=== PATIENT | female | born 1960 | race American Indian/Alaskan Native ===

== ENCOUNTER 2016-07-29 | Day surgery (SDC) | payer OTHER ==
[2016-07-29 12:52] VITALS: BMI 34.3
[2016-07-29] MEDS ORDERED: Propofol 10 mg/ml Inj (20 ML) ONE (13:01)
[2016-07-29] MEDS ORDERED: Lactated Ringer's 500 ML IV ONE (13:05)
[2016-07-29 13:34] VITALS: TEMP 97
[2016-07-29 13:42] VITALS: BP 111/51; PULSE 64; RESP 15; O2SAT 10
== END 2016-07-29 13:42 | disposition home or self-care (01) ==
LOC: H.ENDO
PROVIDERS: ATTEND Internal Medicine Gastroenterology
DX: Z12.11 Encounter for screening for malignant neoplasm of colon (principal); I25.10 Atherosclerotic heart disease of native coronary artery without angina pectoris; E78.5 Hyperlipidemia, unspecified; D25.9 Leiomyoma of uterus, unspecified; D64.9 Anemia, unspecified; K64.8 Other hemorrhoids; K63.89 Other specified diseases of intestine; K92.2 Gastrointestinal hemorrhage, unspecified

== ENCOUNTER 2016-08-05 07:05 | Day surgery (SDC) | payer OTHER ==
[2016-08-05] MEDS ORDERED: Lactated Ringer's 500 ML IV ONE (07:33)
[2016-08-05 07:44] VITALS: O2SAT 100
[2016-08-05] MEDS ORDERED: Propofol 10 mg/ml Inj (20 ML) ONE (08:23)
[2016-08-05 09:15] VITALS: TEMP 99.3
[2016-08-05 09:30] VITALS: BP 132/70; PULSE 94; RESP 24
== END 2016-08-05 09:40 | disposition home or self-care (01) ==
LOC: H.ENDO 07:05
PROVIDERS: ATTEND Internal Medicine Gastroenterology
DX: K57.30 Diverticulosis of large intestine without perforation or abscess without bleeding (principal); I25.10 Atherosclerotic heart disease of native coronary artery without angina pectoris; E78.5 Hyperlipidemia, unspecified; D64.9 Anemia, unspecified; K64.8 Other hemorrhoids; K92.2 Gastrointestinal hemorrhage, unspecified; Z85.038 Personal history of other malignant neoplasm of large intestine

== ENCOUNTER 2016-09-15 11:56 | Emergency (ER) | payer MEDICAID ==
[2016-09-15 12:05] VITALS: BP 151/80; PULSE 90; TEMP 98; O2SAT 98; BMI 35.3
[2016-09-15 13:26] LABS: BASO % 0.5 % (0.0-2.0); EOS % 0.8 % (0.0-4.0); HEMOGLOBIN 12.8 g/dL (12.0-16.0); LYMPH % 30.5 % (20.0-40.0); MEAN CELL VOLUME 82.9 fl (81.0-99.0); MEAN CORPUSCULAR HEMOGLOBIN 26.9 pg (27.0-31.0); MEAN CORPUSCULAR HGB CONC 32.5 g/dL (33.0-37.0); MEAN PLATELET VOLUME 8.6 fl (7.2-11.7); MONO # 0.2 K/uL (0.0-0.8); MONO % 7.2 % (0.0-10.0); NRBC % 0.3 % (0.0-0.0); RBC 4.74 Mil/uL (3.80-5.20); RED CELL DISTRIBUTION WIDTH 14.5 % (11.5-14.5); WHITE BLOOD COUNT 3.3 K/uL (4.8-10.8)
[2016-09-15 14:16] LABS: ALBUMIN 4.5 g/dL (3.5-5.0); ALT/SGPT 32 U/L (9-52); AST/SGOT 33 U/L (14-36); BLOOD UREA NITROGEN 11 mg/dl (7-17); CALCIUM 9.9 mg/dL (8.4-10.2); GFR AFRICAN-AMERICAN > 60; GFR NON-AFRICAN AMERICAN > 60
--- NOTE | 2016-09-15 14:58 | ED PDOC ---
Syncope/Near Syncope/Dizziness Time Seen by Provider: 09/15/16 12:40 Chief Complaint (Nursing): Dizziness/Lightheaded Chief Complaint (Provider): My BP was high and I got dizzy History Per: Patient History/Exam Limitations: no limitations Onset/Duration Of Symptoms: Intermittent Episodes Associated Symptoms Preceding Syncopal Episode: Lightheadedness Fall Associated With With Symptoms: No Severity: Mild Additional Complaint(s): 55yo female under workup for colon cancer, was getting an echocardiogram this morning and BP noted to be high 170s systolic, she got dizzy/ lightheaded hence sent to ED. Result echo not yet available. 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 Today she notes intermittent back pain she attributes to fibroids. Past Medical History Vital Signs: Last Vital Signs Temp 98 F 09/15/16 12:05 Pulse 90 09/15/16 12:05 Resp BP 151/80 H 09/15/16 12:05 Pulse Ox 98 09/15/16 12:05 - Medical History PMH: Anemia, CAD, HTN, Hypercholesterolemia, Hyperlipidemia, Mitral Valve Prolapse Denies: Arthritis, Asthma, Atrial Fibrillation, CHF, COPD, Diabetes, HIV, Chronic Kidney Disease, Seizures - Surgical History Surgical History: (x3) Denies: CABG, Pacemaker - Family History Family History: States: Unknown Family Hx Denies: CAD - Home Medications Home Medications: Ambulatory Orders Medication Instructions Recorded Aspirin [Ecotrin] 81 mg PO DAILY 02/05/16 - Allergies Allergies/Adverse Reactions: Allergies Allergy/AdvReac Type Severity Reaction Status Date / Time inderal Allergy RASH Uncoded 07/29/16 12:47 Review of Systems Constitutional: Negative for: Fever, Chills Cardiovascular: Positive for: Light Headedness. Negative for: Chest Pain, Palpitations Gastrointestinal: Negative for: Nausea, Vomiting Genitourinary Female: Negative for: Dysuria, Incontinence Skin: Negative for: Rash, Lesions, Jaundice Neurological: Positive for: Dizziness. Negative for: Weakness, Incoordination, Headache Physical Exam - Reviewed Nursing Documentation Reviewed: Yes Vital Signs Reviewed: Yes - Physical Exam Appears: Positive for: Well, Non-toxic, No Acute Distress Head Exam: Positive for: ATRAUMATIC, NORMAL INSPECTION, NORMOCEPHALIC Skin: Positive for: Normal Color, Warm, DRY Eye Exam: Positive for: EOMI, Normal appearance, PERRL ENT: Positive for: Normal ENT Inspection Neck: Positive for: Normal, Painless ROM Cardiovascular/Chest: Positive for: Regular Rate, Rhythm Respiratory: Positive for: CNT, Normal Breath Sounds Gastrointestinal/Abdominal: Positive for: Normal Exam, Bowel Sounds, Soft Back: Positive for: Normal Inspection Extremity: Positive for: Normal ROM Neurologic/Psych: Positive for: Alert, Oriented - Laboratory Results Result Diagrams: 09/15/16 13:15 09/15/16 13:15 - ECG O2 Sat by Pulse Oximetry: 98 Medical Decision Making Medical Decision Making: workup was initiated for presyncope, mildly elevated BP. Instructed on findings and initial impressions. labs were reviewed and clinically unremarkable patient improved over course of ED stay, without evidence of cardiac ischemia, arrhythmia, systemic infection, dehydration or neurologic emergency. Followup echo result as outpatient. BP monitoring via PMD. Disposition - Clinical Impression Clinical Impression: Dizziness, Elevated blood pressure reading - Patient ED Disposition Is Patient to be Admitted: No Counseled Patient/Family Regarding: Studies Performed, Diagnosis, Need For Followup - Disposition Referrals: [facility] [Outside] Disposition: Routine/Home Disposition Time: 15:15 Condition: STABLE Additional Instructions: See clinic thursday as scheduled for BP check and further testing./ Return to ER for any new or worse symptoms/ Instructions: Hypertension (ED)
--- NOTE | 2016-09-16 08:25 | CARD ---
APPROVED REPORT EKG Measurement Heart [id number] <Conclusion> Normal sinus rhythm T wave abnormality, consider inferior ischemia T wave abnormality, consider anterior ischemia Abnormal ECG
== END 2016-09-15 15:41 | disposition home or self-care (01) ==
LOC: H.ER 11:56
DX: I10 Essential (primary) hypertension (principal); R42 Dizziness and giddiness